=== PATIENT | male | born 1990 | race Hispanic/Latino ===

== ENCOUNTER 2017-03-12 08:20 | Emergency (ER) | payer OTHER, BC ==
[2017-03-12 08:26] VITALS: BMI 22.8
[2017-03-12 08:50] VITALS: BP 144/89; PULSE 88; RESP 16; TEMP 98.9; O2SAT 99
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
== END 2017-03-12 09:56 | disposition home or self-care (01) ==
LOC: ED 08:20
DX: S20.212A Contusion of left front wall of thorax, initial encounter (principal); S63.502A Unspecified sprain of left wrist, initial encounter; V49.49XA Driver injured in collision with other motor vehicles in traffic accident, initial encounter; W22.11XA Striking against or struck by driver side automobile airbag, initial encounter; Y92.410 Unspecified street and highway as the place of occurrence of the external cause